=== PATIENT | male | born 1975 | race Caucasian/White ===

== ENCOUNTER 2016-11-25 14:40 | Emergency (ER) | payer BC ==
[~2016-11-25] VITALS: Ht 175.3 cm; Wt 102.2 kg
[~2016-11-25 14:40] MED LIST: [UNRECOGNIZED DRUG - REMARK]
[2016-11-25 14:45] VITALS: Ht 175.3 cm; Wt 102.2 kg
[2016-11-25] MEDS ORDERED: CYCL5TAB PO (15:33)
[2016-11-25] MEDS ORDERED: no routine meds (15:33)
[2016-11-25] MEDS ORDERED: IBUP-1724 PO (15:33)
[2016-11-25] MEDS ORDERED: HYDR-4246 PO (15:33)
--- NOTE | 2016-11-25 16:06 | ERPDOC ---
Departure Disposition Decision Date: Nov 25, 2016 Disposition Decision Time: 17:16 Disposition: 01 DISCHARGED HOME, SELF-CARE Impression Impression Impression: Primary Impression: Low back pain with sciatica Chronicity: acute Back pain laterality: bilateral Sciatica laterality: bilateral sciatica Qualified Codes: M54.41 - Lumbago with sciatica, right side ; M54.42 - Lumbago with sciatica, left side Severity: Moderate Condition: Improved Seen By: Mid-level only Patient Instructions: Acute Low Back Pain (ED), Sciatica (ED) Problems/Meds/Labs Reviewed?: Yes Medications reviewed and manag: Yes Additional Instructions: Your lumbar spine x-ray did not show any acute findings. You may take meloxicam 15mg daily with food for pain. You may take baclofen 10mg every 8 hours for muscle spasms. This medication may cause drowsiness so avoid operating heavy machinery, driving, or drinking alcohol while taking. Avoid activity that exacerbates you low back pain. Follow with your PCP next week for reevaluation if symptoms are not improving, sooner if worsening symptoms (see discharge packet close). Follow up care ordered?: Yes Mental Status: Alert, Oriented Scripts Oxycodone HCl/Acetaminophen (Percocet 5-325 mg Tablet) 5-325 Tablet 1-2 TAB PO Q4-6HPRN Y for PAIN, #20 TAB Take 1 tablet, by mouth, every 4 hours as needed for pain. Prov: CAROLE BAKER 11/25/16 Meloxicam (Meloxicam) 15 Mg Tablet 15 MG PO DAILY for 10 Days, #10 TAB Prov: CAROLE BAKER 11/25/16 Baclofen (Baclofen) 10 Mg Tablet 1 TAB PO TID for 10 Days, #30 TAB Prov: CAROLE BAKER 11/25/16 HPI - Back Pain General Chief Complaint: Low Back Pain or Injury Stated Complaint: BACK PAIN Time Seen by Provider: 16:03 Source: patient HPI - Back Pain Initial Comments 41-year-old male presents to ER with complaint of bilateral lower back pain radiating to bilateral thighs. States that he has some tingling in thighs associated with pain. Patient states that pain started probably on Monday and has gotten worse. Pain yesterday was in his right lower quadrant radiating to right lower back. Pain worse with movement or twisting. Patient does have history of back pain. States he was diagnosed with rheumatoid arthritis some time ago which he feels may have been a mistake because he does not have any joint deterioration. No longer takes any medication for RA. Patient is a florez and denies any new or unusual back strain/sprain or trauma. [facility] and had an unremarkable UA. Patient was sent over from [facility] for evaluation. Denies any loss of function/sensation , bowel/bladder, urinary retention or ataxia. Admits tingling sensation to bilateral thighs which he has had before, but has no numbness. UA done at was negative. Patient says this pain is consistent to his normal back pain. Took one of his 's norco and flexeril 10mg at 1230 today. Pain/Severity Scale: Now: 9/10 Location: lumbar spine, paraspinous muscles Radiation: upper legs Associated Sypmtoms: lower back pain, muscle spasms, DENIES: fever, loss of bladder control, loss of bowel control, numbness in legs/feet, other (urinary retention or ataxia), sensory/motor loss, tingling in legs/feet, weakness Allergies: Coded Allergies: No Known Allergies (Unverified , 11/25/16) Past History Past Medical History Metabolic: DENIES: diabetes Cardiac: DENIES: angina Respiratory: DENIES: asthma GI: DENIES: ulcers Male: renal insufficiency Neurological: DENIES: seizures Musculoskeletal: back pain Psychological: DENIES: depression Family History Family PMH: FOUND: other (noncontributory) Social History Substance Use Type: does not use Alcohol Intake: occasionally Review of Systems Constitutional Constitutional: DENIES: chills, dizziness, fever, weakness Eyes General: DENIES: erythema, exudate Lids/Accessories: DENIES: erythema, swelling ENMT Ears: DENIES: pain Sinuses: DENIES: congestion, rhinorrhea Mouth/Throat: DENIES: sore throat Cardiovascular Cardiac: DENIES: chest pain, murmur Rhythm/Rate: DENIES: palpitations Pulmonary Respiratory: DENIES: cough, dyspnea GI Upper Abdomen: DENIES: nausea, vomiting Lower Abdomen: pain, see HPI, DENIES: diarrhea General: DENIES: burning, dysuria, frequency, pain, urgency Male: DENIES: retention Musculoskeletal General: pain, see HPI, tenderness Integumentary Skin: DENIES: color change, itching, rash Neurological General: DENIES: ataxia, change in strength, numbness, paralysis/paresis, weakness Psychiatric Psychiatric: DENIES: anxiety, depression, nervousness Physical Exam General General Nourishment: well nourished, well developed, no acute distress, adult General Body Habitus: disheveled Vitals and Pain Weight: Kilograms: 102.200 Height (feet): 5 Height (inches): 9.00 Triage Pain Scale: Eyes (brief) Eyes Brief: found: EOMI ENMT (brief) ENMT Brief: NOT FOUND: nasal exudate, nasal swelling Neck (brief) Neck: FOUND: trachea midline Respiratory (brief) Respiratory: FOUND: clear all caruso, equal bilaterally, symmetrical Cardiovascular (brief) Cardiac: FOUND: regular rate, regular rhythm Abdomen (brief) Abdominal Brief: FOUND: bowel normo active x4, soft, NOT FOUND: tender Musculoskeletal Back: FOUND: other (increasing lower back pain with straight leg raises), spasm , spine point tenderness (over L4-5), tenderness (paraspinous) Integumentary (brief) Integumentary Brief: FOUND: dry, pink, warm Neurologic Mental Status: FOUND: alert, oriented Cranial Nerves: NOT FOUND: facial asymmetry Motor : Motor Location: quadriceps, hamstring, foot extension, foot flexion Motor Degree: 5 Sensation: FOUND: soft touch intact x4 ext Cerebellar: FOUND: tandem walk DTR's : DTR Side: bilateral DTR Location: Patellar DTR Grade: 2+ Psychiatric (brief) Psychiatric Brief: FOUND: normal affect Differential Diagnoses Considering: Disc Herniation, Diverticulitis, Compression Fracture, Lumbar Sprain, Lumbar Strain, Renal Colic, UTI Progress Results/Orders Orders Procedure Category Date Status Time Ketorolac (Toradol) PHA 11/25/16 Complete 16:30 Lumbar Spine 2-3 Views RAD 11/25/16 Resulted Hydromorphone PHA 11/25/16 Complete (Dilaudid) 17:15 Orphenadrine (Norflex) PHA 11/25/16 Complete 18:00 Medications Current ED Medications Ketorolac Tromethamine (Toradol) 60 mg O ONCE IM Last administered on t 16:45; Start 11/25/16 at 16:30; Stop 11/25/16 at 16:31; Status DC Hydromorphone HCl (Dilaudid) 1 mg O ONCE IM Last administered on 11/25/16 17: 16; Start 11/25/16 at 17:15; Stop 11/25/16 at 17:16; Status DC Orphenadrine Citrate (Norflex) 60 mg O ONCE IM Last administered on 11/25/16 18:00; Start 11/25/16 at 18:00; Stop 11/25/16 at 18:01; Status DC Progress Progress Patient says he has no relief of pain after toradol or dilaudid. I ordered norflex at this time since 6 hours had passed since reported taking flexeril. Patient says pain is starting to ease after IM norflex. I discussed x-ray findings with patient and his and answered questions. Patient symptoms and exam findings are consistent with sciatica. Patient verbalized understanding of treatment plan, follow up with PCP and return precautions. Xray Xray : Xray: L-Spine Interpretation: Normal (no acute osseous findings), Reviewed Written Report CAROLE BAKER APRN Nov 25, 2016 16:06
[2016-11-25] MEDS ORDERED: KETOROLAC 60mg/2ml INJECTION IM ONE (16:30)
--- NOTE | 2016-11-25 16:50 | DI ---
Indication: ITS.REASON: L 4-5 TTP PROCEDURE: LUMBAR SPINE 2-3 VIEWS: Encounter: Initial Comparison: None Findings: Alignment of the lumbar spine is within normal limits. No acute fracture or subluxation. The vertebral body heights and disk spaces are maintained. Impression: No acute osseous abnormality. .
--- OUTSIDE RECORDS SUMMARY | 2016-11-25 16:54 | XMS REPORT | Continuity of Care Document ---
Author Author [facility] Organization [facility] Address Unknown Phone Unavailable Support Name Relationship Address Phone GEN VITAL APRN Caregiver [address] [place] [address] Unavailable LYNN PALACIOS Next Of Kin [address] [place] [address] Insurance Providers Guarantor Bela Palacios Address [address] [place] [address] Email DENIED/NO TO [employer] Policy Number [id number] Subscriber's Name Lynn Palacios Relationship 01 Spouse Group Number [id number] Chief Complaint and Reason for Visit Chief Complaint Male Urogenital Problems Reason for Visit Low back pain Problems Past Problems Medical Problem Onset Date Low back pain Unknown Medications Current Home Medications Medication Dose Units Route Directions Days Qty Instructions Start Date On No Med 11/25/16 Social History No social history. Hospital Discharge Instructions No hospital discharge instructions. Plan of Care Discharge Date 11/25/16 2:32pm Disposition 02 TO [facility] Condition at Discharge Stable Prescriptions See Medication Section Additional Instructions/Education go immediately to the ER. Functional Status No functional status results. Allergies, Adverse Reactions, Alerts No allergy information available. Immunizations Query Response on File Recorded Date/Time DTaP Vaccine History UNSURE 11/25/16 1:49pm Influenza Vaccine Hx 04/1511/25/16 1:49pm Tetanus Diptheria Vaccine History UTD 11/25/16 1:49pm Vital Signs Acute Vital Signs Vital Response Date/Time Temperature (Fahrenheit) 98.6 deg F (96.8 - 99.1) 11/25/2016 2:45pm Temperature (Calculated Celsius) 37.69268 degrees C (36.0 - 37.3) 11/25/2016 2:45pm Pulse Rate (adult) 86 bpm (60 - 100) 11/25/2016 2:45pm Respiratory Rate 20 breaths/min (10 - 20) 11/25/2016 2:45pm O2 Sat by Pulse Oximetry 96 % (90 - 100) 11/25/2016 2:45pm Blood Pressure 120/70 mm Hg 11/25/2016 2:45pm Height (Feet) 5 feet 11/25/2016 2:45pm Height (Inches) 9.00 inches 11/25/2016 2:45pm Weight (Kilograms) 102.200 kg 11/25/2016 2:45pm Body Mass Index (BMI) 33.0 11/25/2016 2:45pm Results Laboratory Results Test Name Result Units Flags Reference Collection Date/Time Result Date/ Time Comments Urine Collection Type CLEANCATCH-MIDSTREAM 11/25/2016 1:48pm 2016 2:28pm Urine Color DK YELLOW YELLOW 11/25/2016 1:48pm 11/25/2016 2:28pm Urine Turbidity CLEAR CLEAR 11/25/2016 1:48pm 11/25/2016 2:28pm Urine Specific [place] 1.020 1.015-1.025 11/25/2016 1:48pm 2016 2:28pm Urine pH 5.0 5.0-8.0 11/25/2016 1:48pm 11/25/2016 2:28pm Urine Leukocyte Esterase NEGATIVE NEGATIVE 11/25/2016 1:48pm 2016 2:28pm Urine Nitrite NEGATIVE NEGATIVE 11/25/2016 1:48pm 11/25/2016 2:28pm Urine Protein NEGATIVE NEGATIVE 11/25/2016 1:48pm 11/25/2016 2:28pm Urine Glucose (UA) NEGATIVE NEGATIVE 11/25/2016 1:48pm 11/25/2016 2: 28pm Urine Ketones NEGATIVE NEGATIVE 11/25/2016 1:48pm 11/25/2016 2:28pm Urine Urobilinogen NORMAL EU/DL NORMAL 11/25/2016 1:48pm 11/25/2016 2: 28pm Urine Bilirubin NEGATIVE NEGATIVE 11/25/2016 1:48pm 11/25/2016 2: 28pm Urine Blood NEGATIVE NEGATIVE 11/25/2016 1:48pm 11/25/2016 2:28pm Procedures No known history of procedures. Encounters Encounter Location Arrival/Admit Date Discharge/Depart Date Attending Provider Departed Emergency Room [facility] 11/25/16 1:40pm 11/25/16 2: 32pm GEN VITAL APRN Recent Diagnosis
[2016-11-25] MEDS ORDERED: HYDROMORPHONE 2mg/ml INJECTION IM ONE (17:15)
[2016-11-25] MEDS ORDERED: MELO-267 PO (17:20)
[2016-11-25] MEDS ORDERED: BACL10TA PO (17:20)
--- NOTE | 2016-11-25 17:43 | NUR ---
UPDATE PATIENT REPORTS NO IMPROVEMENT IN PAIN AT THIS TIME. Sohan BAKER APRN NOTIFIED AND TO BEDSIDE TO DISCUSS POC.
[2016-11-25] MEDS ORDERED: OXYC1TAB8 PO (17:57)
[2016-11-25] MEDS ORDERED: ORPHENADRINE 60mg/2ml INJECTION IM ONE (18:00)
[2016-11-25 18:32] VITALS: BP 115/76; PULSE 72; RESP 18; TEMP 98.6; O2SAT 96
== END 2016-11-25 18:32 | disposition home or self-care (01) ==
LOC: ED 14:40
DX: M54.42 Lumbago with sciatica, left side (principal); M54.41 Lumbago with sciatica, right side
CPT/HCPCS: 96372

== ENCOUNTER → 2016-11-29 | Outpatient (CLI) | payer BC ==
[~2016-11-29] MED LIST changes: +BACL10TA PO; +CYCL5TAB PO; +HYDR-4246 PO; +IBUP-1724 PO; +IOHEXOL 300 MG/ML 100ml INJECTION ONE; +MELO-267 PO; +NORMAL SALINE 100 ML ONE; +OXYC1TAB8 PO; +SALINE FLUSH 10ml SYRINGE ONE; -[UNRECOGNIZED DRUG - REMARK]; +no routine meds
[2016-11-29 12:49] LABS: BASOPHILS % (AUTO) 0.2 % (0-2); BLOOD, URINE NEGATIVE (NEGATIVE); COLOR,URINE YELLOW (YELLOW); EOSINOPHILS # (AUTO) 0.2 T/MM3 (0-0.5); EOSINOPHILS % (AUTO) 4.1 % (0-4); HCT - HEMATOCRIT 47.6 % (41-53); HGB - HEMOGLOBIN 16.3 GM/DL (13.5-17.5); IMMATURE GRANULOCYTE # (AUTO) 0.02 T/MM3 (0.00-0.03); IMMATURE GRANULOCYTE % (AUTO) 0.4 % (0.0-0.5); LEUKOCYTE ESTERASE ,URINE NEGATIVE (NEGATIVE); LYMPHOCYTES # (AUTO) 1.8 T/MM3 (1-4.8); MEAN CORPUSCULAR HGB 31.3 UUG (26-34); MEAN CORPUSCULAR HGB CONC(MCHC 34.2 GM/DL (31-37); MEAN CORPUSCULAR VOLUME 91.5 UM3 (80-100); MEAN PLATELET VOLUME 8.9 UM3 (9.4-12.4); MONOCYTES # (AUTO) 0.4 T/MM3 (0-0.8); MONOCYTES % (AUTO) 7.3 % (0-9.0); NITRITE,URINE NEGATIVE (NEGATIVE); WBC - WHITE BLOOD COUNT 5.4 T/MM3 (4.5-11.0)
[2016-11-29 13:08] LABS: ALBUMIN 4.5 G/DL (3.5-5.0); ALBUMIN/GLOBULIN RATIO 1.3 RATIO (1.1-2.2); ALKALINE PHOSPHATASE 68 U/L (38-126); ALT (SGPT) 55 U/L (21-72); ANION GAP 12 MEQ/L (5-15); AST (SGOT) 40 U/L (17-59); BUN/CREATININE RATIO 13 RATIO (6-26); CALCIUM 9.8 MG/DL (8.4-10.2); CHLORIDE 105 MEQ/L (98-107); CO2 - CARBON DIOXIDE 27 MEQ/L (22-30); CREATININE 1.1 MG/DL (0.8-1.5); GLOMERULAR FILTRATION RATE 73; GLUCOSE 88 MG/DL (75-110); POTASSIUM 4.6 MEQ/L (3.6-5); SODIUM 144 MEQ/L (134-144); TOTAL PROTEIN 7.9 G/DL (6.3-8.2)
[2016-11-29 15:14] LABS: C-REACTIVE PROTEIN < 5.0 MG/L (0-9)
--- NOTE | 2016-11-29 16:14 | DI ---
Indication: ITS.REASON: M54.5 LOW BACK PAIN; R10.31 PROCEDURE: CT ABD/PELVIS W/CONTRAST ONLY: Encounter: Initial Comparison: Lumbar spine radiographs from November 25, 2016 Technique: Axial CT images were performed through the abdomen and pelvis after the administration of intravenous contrast. Coronal and sagittal two-dimensional reformats. Automated Exposure Control and Iterative Reconstruction dose reducing techniques were utilized. Contrast: Omnipaque 300 100 mL Findings: The lung bases are clear. The liver is normal. The gallbladder, spleen, pancreas and adrenal glands are within normal limits. The kidneys are normal. No abdominal or pelvic lymphadenopathy. Bladder is normal. Prostate and rectum are within normal limits. No free fluid. No evidence of a bowel obstruction. No diverticulosis or acute diverticulitis. The appendix is normal. Bone windows show no acute findings. There is a central partially calcified disk protrusion noted at the T12-L1 level which is causing effacement of the thecal sac and mild to moderate central canal stenosis. Also a small disk protrusion noted on the left at T9-T10. Small central disk osteophyte noted at L5-S1 without obvious central canal narrowing. No gross neural foraminal stenosis seen. No other significant disk protrusions noted in the lumbar spine. Impression: 1. No acute disease process seen in the abdomen or pelvis. 2. Degenerative change in the lower thoracic spine with a disk protrusion at T12-L1 causing mild to moderate central canal narrowing. .
== END ==
LOC: LAB 12:32
PROVIDERS: ATTEND Family Medicine
DX: M51.14 Intervertebral disc disorders with radiculopathy, thoracic region (principal); R10.31 Right lower quadrant pain
CPT/HCPCS: 36415; 80053; 81003; 85025; 86140